=== PATIENT | male | born 1965 | race American Indian/Alaskan Native ===

== ENCOUNTER 2018-04-04 14:50 | Emergency (ER) | payer SELFPAY ==
[2018-04-04 16:02] VITALS: BP 167/102
== END 2018-04-04 20:00 | disposition left against medical advice (07) ==
LOC: ED 14:50
DX: M54.89 Other dorsalgia (principal); Z53.21 Procedure and treatment not carried out due to patient leaving prior to being seen by health care provider

== ENCOUNTER 2018-04-05 07:56 | Emergency (ER) | payer SELFPAY ==
[2018-04-05 09:11] VITALS: BP 157/99
--- NOTE | 2018-04-05 09:58 | Emergency Department Report ---
ED Back Pain/Injury HPI - General Chief Complaint: Back Pain/Injury Stated Complaint: LOWER BACK PAIN Time Seen by Provider: 04/05/18 09:49 Source: patient Limitations: No Limitations - History of Present Illness Initial Comments: Mr. Mahoney is a 53-year-old male presents with need for evaluation of chronic back pain and refill of medication. He was recently released from incarceration in January. He has been working at a fast food restaurant. He is unable to afford co-pay to follow-up in the clinic. Therefore he came to the ED. He has chronic lower back pain which has been exacerbated with his new job. He also needs refill of 3 blood pressure medications. Pain is mild lower back. Pain is improved with Alleve. He requests prescription for Suzy GUTHRIE Complaint: back pain -: Gradual, week(s) (2) Similar Symptoms Previously: Yes Severity: moderate Consistency: constant Improves With: other (Alleve) - Related Data Previous Rx's Medication Instructions Recorded Last Taken Type Atenolol 100 mg PO DAILY #30 tablet 05/22/14 Unknown Rx amLODIPine [Norvasc] 5 mg PO DAILY #30 tab 05/22/14 Unknown Rx hydroCHLOROthiazide [Hctz] 12.5 mg PO QDAY #30 capsule 05/22/14 Unknown Rx Atenolol [Tenormin] 25 mg PO DAILY 30 Days #30 tab 04/05/18 Unknown Rx Cyclobenzaprine [Flexeril] 10 mg PO TID PRN #30 tablet 04/05/18 Unknown Rx Losartan [Cozaar] 50 mg PO QDAY 30 Days #30 tablet 04/05/18 Unknown Rx amLODIPine [Norvasc] 10 mg PO DAILY 30 Days #30 tab 04/05/18 Unknown Rx Allergies Allergy/AdvReac Type Severity Reaction Status Date / Time SHAWN Inhibitors Allergy Unknown Verified 04/04/18 15:58 ED Review of Systems ROS: Stated complaint: LOWER BACK PAIN Other details as noted in HPI Constitutional: denies: fever Cardiovascular: denies: chest pain Gastrointestinal: denies: abdominal pain Genitourinary: denies: urgency Neurological: denies: headache, weakness, paresthesias, confusion ED Past Medical Hx - Past Medical History Hx Hypertension: Yes Hx Psychiatric Treatment: Yes (Drug use with crack cocaine) Additional medical history: bulging disc - Surgical History Past Surgical History?: No - Social History Smoking Status: Current Every Day Smoker Substance Use Type: None, Alcohol - Medications Home Medications: Home Medications Medication Instructions Recorded Confirmed Last Taken Type Atenolol 100 mg PO DAILY #30 tablet 05/22/14 07/13/14 Unknown Rx amLODIPine [Norvasc] 5 mg PO DAILY #30 tab 05/22/14 07/13/14 Unknown Rx hydroCHLOROthiazide [Hctz] 12.5 mg PO QDAY #30 capsule 05/22/14 07/13/14 Unknown Rx Atenolol [Tenormin] 25 mg PO DAILY 30 Days #30 tab 04/05/18 Unknown Rx Cyclobenzaprine [Flexeril] 10 mg PO TID PRN #30 tablet 04/05/18 Unknown Rx Losartan [Cozaar] 50 mg PO QDAY 30 Days #30 tablet 04/05/18 Unknown Rx amLODIPine [Norvasc] 10 mg PO DAILY 30 Days #30 tab 04/05/18 Unknown Rx ED Physical Exam - General Limitations: No Limitations General appearance: alert, in no apparent distress - Head Head exam: Present: atraumatic, normocephalic - Eye Eye exam: Present: normal appearance - ENT ENT exam: Present: mucous membranes moist - Neck Neck exam: Present: normal inspection - Respiratory Respiratory exam: Present: normal lung sounds bilaterally. Absent: respiratory distress, wheezes, rales, rhonchi - Cardiovascular Cardiovascular Exam: Present: regular rate, normal rhythm, normal heart sounds. Absent: bradycardia, tachycardia, systolic murmur, diastolic murmur, rubs, gallop - GI/Abdominal GI/Abdominal exam: Present: soft, normal bowel sounds. Absent: distended, tenderness, guarding - Rectal Rectal exam: Present: deferred - Extremities Exam Extremities exam: Present: normal inspection - Back Exam Back exam: Present: normal inspection, full ROM. Absent: tenderness, CVA tenderness (R), CVA tenderness (L), muscle spasm, paraspinal tenderness, vertebral tenderness - Neurological Exam Neurological exam: Present: alert, oriented X3, normal gait - Psychiatric Psychiatric exam: Present: normal affect, normal mood - Skin Skin exam: Present: warm, dry, intact, normal color. Absent: rash ED Course Vital Signs 04/05/18 09:08 Temperature 97.7 F Pulse Rate 64 Respiratory 20 Rate Blood Pressure 157/99 O2 Sat by Pulse 100 Oximetry ED Medical Decision Making - Medical Decision Making 1. Chronic back pain in lumbar region. Patient appears comfortable, neurologically intact. I recommended scheduled dosing of naproxen. rx: flexeril 2. medication refill, rx provided (Losartan, atenolol, amlodipine. Critical care attestation.: If time is entered above; I have spent that time in minutes in the direct care of this critically ill patient, excluding procedure time. ED Disposition Clinical Impression: Back pain, Medication refill, Hypertension Disposition: TO HOME OR SELFCARE Is pt being admited?: No Does the pt Need Aspirin: No Condition: Stable Instructions: Hypertension (ED), Chronic Back Pain (ED) Prescriptions: amLODIPine [Norvasc] 10 mg PO DAILY 30 Days #30 tab Atenolol [Tenormin] 25 mg PO DAILY 30 Days #30 tab Cyclobenzaprine [Flexeril] 10 mg PO TID PRN #30 tablet PRN Reason: Muscle Spasm Losartan [Cozaar] 50 mg PO QDAY 30 Days #30 tablet Referrals: [facility] [Outside] - 3-5 Days Forms: Work/School Release Form(ED)
== END 2018-04-05 10:21 | disposition home or self-care (01) ==
LOC: ED 07:56
DX: I10 Essential (primary) hypertension (principal); M54.5 Low back pain; F17.200 Nicotine dependence, unspecified, uncomplicated; G89.29 Other chronic pain; Z76.0 Encounter for issue of repeat prescription
CPT/HCPCS: 99282

== ENCOUNTER 2019-10-27 10:12 | Emergency (ER) | payer SELFPAY ==
--- NOTE | 2019-10-27 10:54 | Emergency Department Report ---
ED Chest Pain HPI - General Chief Complaint: Chest Pain Stated Complaint: CHEST PAIN Time Seen by Provider: 10/27/19 10:43 Source: patient, EMS Mode of arrival: Stretcher Limitations: No Limitations - History of Present Illness Initial Comments: 54-year-old male with history of hypertension presents to ED with complaint of chest pain. 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 States he had just arrived at work when the chest pain began, which was approximately 40 minutes ago. Patient states the pain was left-sided and sharp. States it initially lasted for approximately 45 seconds, resolved, then returned for approximately 5 seconds before resolving again. EMS was called, patient was given aspirin and nitroglycerin. Patient reports resolution of pain at this time. He reports associated shortness of breath and diaphoresis, denies nausea or vomiting, leg pain or swelling. Patient denies fever, cough, known exposure to COVID positive persons. Patient reports tobacco use and crack cocaine use 2 days ago. Patient states he takes atenolol 100 mg, Norvasc 10 mg. MD Complaint: chest pain -: minutes(s) (40) Onset: during rest Pain Location: left chest Pain Radiation: none Severity: moderate Severity scale (0 -10): 4 Quality: sharp Consistency: intermittent Improves With: nothing Worsens With: nothing re: diaphoresis, dyspnea. denies: nausea, vomting Other Symptoms: denies: cough, fever, leg swelling Treatments Prior to Arrival: aspirin, nitroglycerin - Related Data Previous Rx's Medication Instructions Recorded Last Taken Type amLODIPine 5 mg PO DAILY #30 tab 05/22/14 Unknown Rx atenoloL [Atenolol] 100 mg PO DAILY #30 tablet 05/22/14 Unknown Rx hydroCHLOROthiazide [Hctz] 12.5 mg PO QDAY #30 capsule 05/22/14 Unknown Rx Cyclobenzaprine [Flexeril] 10 mg PO TID PRN #30 tablet 04/05/18 Unknown Rx Losartan [Cozaar] 50 mg PO QDAY 30 Days #30 tablet 04/05/18 Unknown Rx atenoloL [Tenormin] 25 mg PO DAILY 30 Days #30 tab 04/05/18 Unknown Rx Atenolol [Tenormin] 100 mg PO DAILY #30 tab 10/27/19 Unknown Rx amLODIPine 10 mg PO DAILY 30 Days #30 tab 10/27/19 Unknown Rx Allergies Allergy/AdvReac Type Severity Reaction Status Date / Time SHAWN Inhibitors Allergy Unknown Verified 04/04/18 15:58 Heart Score - HEART Score History: Slightly suspicious EKG: Normal Age: 45-65 Risk factors: 1-2 risk factors Troponin: < normal limit HEART Score: 2 ED Review of Systems ROS: Stated complaint: CHEST PAIN Other details as noted in HPI Comment: All other systems reviewed and negative Constitutional: denies: fever Respiratory: shortness of breath. denies: cough Cardiovascular: chest pain Gastrointestinal: denies: nausea, vomiting Musculoskeletal: other (Denies leg pain or swelling) ED Past Medical Hx - Past Medical History Previous Medical History?: Yes Hx Hypertension: Yes Hx Psychiatric Treatment: Yes (Drug use with crack cocaine) Additional medical history: bulging disc - Surgical History Past Surgical History?: No - Social History Smoking Status: Current Every Day Smoker Substance Use Type: Methamphetamines - Medications Home Medications: Home Medications Medication Instructions Recorded Confirmed Last Taken Type amLODIPine 5 mg PO DAILY #30 tab 05/22/14 07/13/14 Unknown Rx atenoloL [Atenolol] 100 mg PO DAILY #30 tablet 05/22/14 07/13/14 Unknown Rx hydroCHLOROthiazide [Hctz] 12.5 mg PO QDAY #30 capsule 05/22/14 07/13/14 Unknown Rx Cyclobenzaprine [Flexeril] 10 mg PO TID PRN #30 tablet 04/05/18 Unknown Rx Losartan [Cozaar] 50 mg PO QDAY 30 Days #30 tablet 04/05/18 Unknown Rx atenoloL [Tenormin] 25 mg PO DAILY 30 Days #30 tab 04/05/18 Unknown Rx Atenolol [Tenormin] 100 mg PO DAILY #30 tab 10/27/19 Unknown Rx amLODIPine 10 mg PO DAILY 30 Days #30 tab 10/27/19 Unknown Rx ED Physical Exam - General Limitations: No Limitations General appearance: alert, in no apparent distress - Head Head exam: Present: atraumatic, normocephalic - Eye Eye exam: Present: normal appearance, EOMI - ENT ENT exam: Present: mucous membranes moist - Neck Neck exam: Present: normal inspection - Respiratory Respiratory exam: Present: normal lung sounds bilaterally. Absent: respiratory distress - Cardiovascular Cardiovascular Exam: Present: regular rate, normal rhythm - GI/Abdominal GI/Abdominal exam: Present: soft. Absent: distended, tenderness - Extremities Exam Extremities exam: Present: normal inspection. Absent: pedal edema, calf tenderness - Neurological Exam Neurological exam: Present: alert, oriented X3 - Psychiatric Psychiatric exam: Present: normal affect, normal mood - Skin Skin exam: Present: warm, dry, intact, normal color ED Course Vital Signs 10/27/19 10/27/19 10/27/19 10:23 10:30 10:45 Temperature 98.8 F Pulse Rate 66 70 65 Respiratory 25 H 12 11 L Rate Blood Pressure 168/106 154/93 Blood Pressure 169/102 [Right] O2 Sat by Pulse 96 98 98 Oximetry 10/27/19 10/27/19 10/27/19 11:00 11:15 11:30 Temperature Pulse Rate 62 64 62 Respiratory 13 17 13 Rate Blood Pressure 146/90 151/93 150/102 Blood Pressure [Right] O2 Sat by Pulse 98 96 98 Oximetry 10/27/19 10/27/19 10/27/19 11:45 12:01 12:15 Temperature Pulse Rate 63 67 66 Respiratory 16 16 18 Rate Blood Pressure 153/93 139/99 139/99 Blood Pressure [Right] O2 Sat by Pulse 98 96 96 Oximetry 10/27/19 10/27/19 10/27/19 12:30 12:45 13:00 Temperature Pulse Rate 60 64 63 Respiratory 15 10 L 18 Rate Blood Pressure 143/86 143/86 144/94 Blood Pressure [Right] O2 Sat by Pulse 96 97 97 Oximetry 10/27/19 10/27/19 10/27/19 13:15 13:30 13:45 Temperature Pulse Rate 64 61 58 L Respiratory 22 12 13 Rate Blood Pressure 153/99 144/90 156/95 Blood Pressure [Right] O2 Sat by Pulse 97 98 97 Oximetry 10/27/19 10/27/19 10/27/19 14:00 14:15 14:30 Temperature Pulse Rate 69 67 64 Respiratory 15 26 H 14 Rate Blood Pressure 152/93 152/93 155/87 Blood Pressure [Right] O2 Sat by Pulse 96 95 98 Oximetry 10/27/19 10/27/19 10/27/19 14:45 15:00 15:15 Temperature Pulse Rate 57 L 69 74 Respiratory 15 18 21 Rate Blood Pressure 151/87 151/87 154/97 Blood Pressure [Right] O2 Sat by Pulse 96 95 96 Oximetry - Reevaluation(s) Reevaluation #1: 10/27/19 13:19 Pt stable. Comfortable, remains chest pain free. Will repeat troponin. If normal, pt will d/c home w/ outpt f/u. ED Medical Decision Making - Lab Data Result diagrams: 10/27/19 11:03 10/27/19 11:03 - EKG Data -: EKG Interpreted by Me EKG shows normal: sinus rhythm, axis, intervals, QRS complexes, ST-T waves Rate: normal - EKG Data Interpretation: no acute changes - Radiology Data Radiology results: report reviewed, image reviewed - Medical Decision Making 54-year-old male with brief, atypical sounding chest pain. EKG unremarkable, troponin negative x2. D-dimer normal. Patient currently chest pain-free. Vital signs stable. Patient does report crack cocaine abuse in the last couple of days. Spoke with patient regarding discontinuation of drug use. Patient also given a refill on his blood pressure medications. Outpatient follow-up advised. Return precautions given. - Differential Diagnosis ACS, PE, anxiety, pneumonia Critical care attestation.: If time is entered above; I have spent that time in minutes in the direct care of this critically ill patient, excluding procedure time. ED Disposition Clinical Impression: Chest pain Disposition: DC-01 TO HOME OR SELFCARE Is pt being admited?: No Condition: Stable Instructions: Chest Pain (ED) Prescriptions: amLODIPine 10 mg PO DAILY 30 Days #30 tab Atenolol [Tenormin] 100 mg PO DAILY #30 tab Referrals: ADDIE LEMUS MD [Primary Care Provider] - 3-5 Days [facility] [Provider Group] - 3-5 Days MOISES NAJERA MD [Staff Physician] - 3-5 Days Time of Disposition: 15:04
[2019-10-27 11:22] LABS: Basophils % (Auto) 0.3 % (0.0-1.8); Eosinophils % (Auto) 0.6 % (0.0-4.3); Hematocrit 42.7 % (35.5-45.6); Hemoglobin 14.7 gm/dl (11.8-15.2); Lymphocytes # (Auto) 1.3 K/mm3 (1.2-5.4); Lymphocytes % (Auto) 21.1 % (13.4-35.0); Mean Corpuscular HGB Conc 35 % (32-34); Mean Corpuscular Volume 94 fl (84-94); Monocytes # (Auto) 0.5 K/mm3 (0.0-0.8); Platelet Count 187 K/mm3 (140-440); Red Blood Count 4.57 M/mm3 (3.65-5.03); Red Cell Distribution Width 14.7 % (13.2-15.2)
--- NOTE | 2019-10-27 11:26 | XRay Report ---
CHEST 1 VIEW 10/27/2019 10:19 AM INDICATION / CLINICAL INFORMATION: Chest pain. COMPARISON: None available. FINDINGS: SUPPORT DEVICES: None. HEART / MEDIASTINUM: No significant abnormality. LUNGS / PLEURA: No significant pulmonary or pleural abnormality. No pneumothorax. ADDITIONAL FINDINGS: No significant additional findings. IMPRESSION: 1. No acute findings. Signer Name: Cristi Jimenez MD Signed: 10/27/2019 11:21 AM Workstation Name: [id number]
[2019-10-27 11:32] LABS: INR 1.04 (0.87-1.13)
[2019-10-27 11:33] LABS: Partial Thromboplastin Time 25.8 Sec. (24.2-36.6)
[2019-10-27 11:44] LABS: BUN/Creatinine Ratio 11; Blood Urea Nitrogen 10 mg/dL (9-20); Calcium 8.9 mg/dL (8.4-10.2); Hemolysis Index 4
[2019-10-27 15:26] VITALS: BP 154/97
== END 2019-10-27 15:28 | disposition home or self-care (01) ==
LOC: ED 10:12
DX: R07.9 Chest pain, unspecified (principal); I10 Essential (primary) hypertension; F17.200 Nicotine dependence, unspecified, uncomplicated; F15.90 Other stimulant use, unspecified, uncomplicated; F14.90 Cocaine use, unspecified, uncomplicated; Z79.899 Other long term (current) drug therapy; Z88.8 Allergy status to other drugs, medicaments and biological substances
CPT/HCPCS: 36415; 71045; 80048; 84484; 85025; 85379; 85610; 85730; 93005

== ENCOUNTER 2019-12-15 12:54 | Inpatient (IN) | payer OTHER ==
[2019-12-15 14:48] LABS: Basophils # (Auto) 0.2 K/mm3 (0.0-0.1); Basophils % (Auto) 2.7 % (0.0-1.8); Eosinophils % (Auto) 0.8 % (0.0-4.3); Hematocrit 46.1 % (35.5-45.6); Hemoglobin 15.8 gm/dl (11.8-15.2); Lymphocytes % (Auto) 15.5 % (13.4-35.0); Mean Corpuscular HGB Conc 34 % (32-34); Mean Corpuscular Volume 95 fl (84-94); Monocytes # (Auto) 0.6 K/mm3 (0.0-0.8); Monocytes % (Auto) 9.2 % (0.0-7.3); Platelet Count 205 K/mm3 (140-440); Red Blood Count 4.85 M/mm3 (3.65-5.03); Red Cell Distribution Width 14.5 % (13.2-15.2)
[2019-12-15 14:58] LABS: Alanine Aminotransferase 20 units/L (7-56); Albumin 4.3 g/dL (3.9-5); BUN/Creatinine Ratio 10; Bilirubin,Direct < 0.2 mg/dL (0-0.2); Blood Urea Nitrogen 8 mg/dL (9-20); Calcium 9.3 mg/dL (8.4-10.2); Hemolysis Index 10
[2019-12-15 16:45] LABS: Bilirubin,Urine NEG (Negative); Blood,Urine SM (Negative); Color,Urine Yellow (Yellow); Protein,Urine <15 mg/dL mg/dL (Negative); WBC,Urine < 1.0 /HPF (0.0-6.0)
[2019-12-16 06:04] LABS: Basophils % (Auto) 0.4 % (0.0-1.8); Eosinophils # (Auto) 0.1 K/mm3 (0.0-0.4); Eosinophils % (Auto) 1.9 % (0.0-4.3); Hematocrit 42.6 % (35.5-45.6); Hemoglobin 14.5 gm/dl (11.8-15.2); Lymphocytes # (Auto) 1.9 K/mm3 (1.2-5.4); Lymphocytes % (Auto) 34.1 % (13.4-35.0); Mean Corpuscular HGB Conc 34 % (32-34); Mean Corpuscular Volume 96 fl (84-94); Monocytes # (Auto) 0.5 K/mm3 (0.0-0.8); Monocytes % (Auto) 8.7 % (0.0-7.3); Platelet Count 189 K/mm3 (140-440); Red Blood Count 4.45 M/mm3 (3.65-5.03)
[2019-12-16 06:14] LABS: Alanine Aminotransferase 16 units/L (7-56); Albumin 3.6 g/dL (3.9-5); BUN/Creatinine Ratio 8; Blood Urea Nitrogen 8 mg/dL (9-20); Calcium 8.9 mg/dL (8.4-10.2); Hemolysis Index 7
[2019-12-17 07:09] LABS: BUN/Creatinine Ratio 6; Blood Urea Nitrogen 6 mg/dL (9-20); Calcium 8.7 mg/dL (8.4-10.2); Hemolysis Index 2
[2019-12-18 05:52] LABS: Hematocrit 42.3 % (35.5-45.6); Hemoglobin 14.3 gm/dl (11.8-15.2); Mean Corpuscular HGB Conc 34 % (32-34); Mean Corpuscular Volume 96 fl (84-94); Platelet Count 185 K/mm3 (140-440); Red Blood Count 4.41 M/mm3 (3.65-5.03); Red Cell Distribution Width 14.1 % (13.2-15.2)
[2019-12-18 06:07] LABS: BUN/Creatinine Ratio 5; Blood Urea Nitrogen 5 mg/dL (9-20); Calcium 8.7 mg/dL (8.4-10.2); Hemolysis Index 8
[2019-12-19 13:24] VITALS: BP 122/78
== END 2019-12-19 13:30 | disposition home or self-care (01) | DRG 375 ==
LOC: ED 12:54 → 3A 20:05
PROVIDERS: ADMIT Internal Medicine; ATTEND Hospitalist
PROC: 0DBL8ZZ Excision of Transverse Colon, Via Natural or Artificial Opening Endoscopic (ICD-10-PCS; principal; 2019-12-18)
PROC: 0DBN8ZX Excision of Sigmoid Colon, Via Natural or Artificial Opening Endoscopic, Diagnostic (ICD-10-PCS; 2019-12-18)
DX: C18.9 Malignant neoplasm of colon, unspecified (principal); C79.9 Secondary malignant neoplasm of unspecified site; E87.6 Hypokalemia; I10 Essential (primary) hypertension; I16.0 Hypertensive urgency; F17.210 Nicotine dependence, cigarettes, uncomplicated; Z82.49 Family history of ischemic heart disease and other diseases of the circulatory system; Z80.42 Family history of malignant neoplasm of prostate; Z88.8 Allergy status to other drugs, medicaments and biological substances
CPT/HCPCS: 36415; 71045; 74176; 74177; 80048; 80053; 80076; 81001; 82378; 82962; 83036; 83735; 83880; 84100; 84132; 85025; 85027; 85610; 85730; 88305; G0378; J2270; J2405; J2704; J3480; J7030; J7040; Q9967

== ENCOUNTER 2020-07-28 15:52 | Emergency (ER) | payer OTHER ==
--- NOTE | 2020-07-28 16:08 | Event Note ---
ED Screening Note ED Screening Note: hx of colon cancer LLQ abd pain that worsened that few days ago states he has pain with having a BM states he last had a BM two days ago has not had any surgery, chemo, XRT has not seen GI or surgery due to lack of insurance he was evaluated in December 2019 at this facility and had a biopsy which showed lion nocarcinoma This initial assessment/diagnostic orders/clinical plan/treatment(s) is/are subject to change based on patients health status, clinical progression and re- assessment by fellow clinical providers in the ED. Further treatment and workup at subsequent clinical providers discretion. Patient/guardian urged not to elope from the ED as their condition may be serious if not clinically assessed and managed. Initial orders include: labs
[2020-07-28 17:02] LABS: Alanine Aminotransferase 12 units/L (7-56); Albumin 3.7 g/dL (3.9-5); BUN/Creatinine Ratio 9; Blood Urea Nitrogen 8 mg/dL (9-20); Calcium 8.2 mg/dL (8.4-10.2); Hemolysis Index 6
[2020-07-28 17:19] LABS: Basophils % (Auto) 0.2 % (0.0-1.8); Eosinophils # (Auto) 0.1 K/mm3 (0.0-0.4); Eosinophils % (Auto) 1.6 % (0.0-4.3); Hematocrit 45.2 % (35.5-45.6); Hemoglobin 15.3 gm/dl (11.8-15.2); Lymphocytes # (Auto) 2.1 K/mm3 (1.2-5.4); Lymphocytes % (Auto) 37.9 % (13.4-35.0); Mean Corpuscular HGB Conc 34 % (32-34); Mean Corpuscular Volume 97 fl (84-94); Monocytes # (Auto) 0.5 K/mm3 (0.0-0.8); Monocytes % (Auto) 9.1 % (0.0-7.3); Platelet Count 222 K/mm3 (140-440); Red Blood Count 4.68 M/mm3 (3.65-5.03); Red Cell Distribution Width 13.2 % (13.2-15.2)
[2020-07-28] MEDS ORDERED: ONDANSETRON 4 MG/2 ML INJ IV ONE (18:27)
[2020-07-28] MEDS ORDERED: MORPHINE 4 MG/1 ML INJ IV ONE (18:27)
[2020-07-28] MEDS ORDERED: SODIUM CHLORIDE 0.9% 1000 ML 1,000 ML IV ONE (18:27)
--- NOTE | 2020-07-28 18:29 | Emergency Department Report ---
ED General Adult HPI - General Chief complaint: Pain General Stated complaint: COLON CANCER/PAIN PUI?: No Time Seen by Provider: 07/28/20 16:06 Source: patient, RN notes reviewed, old records reviewed Mode of arrival: Ambulatory Limitations: No Limitations - History of Present Illness Initial comments: The patient was evaluated in the emergency department for symptoms described in the history of present illness. He/she was evaluated in the context of the global COVID-19 pandemic, which necessitated consideration that the patient might be at risk for infection with the virus that causes COVID-19. Institutional protocols and algorithms that pertain to the evaluation of patients at risk for COVID-19 are in a state of rapid change based on information released by regulatory bodies including the CDC and federal and state organizations. These policies and algorithms were followed during the patient's care in the emergency department. Please note that these policies, procedures and recommendations changed on a rapid basis. This is a pleasant 55-year-old gentleman. He was presumptively diagnosed with colon cancer at this hospital in 2019. He was supposed to follow-up with outpatient oncology, Dr. Frieda Nathan. Unfortunately, the patient is not insured. He states that he has pursued multiple avenues to obtain insurance, including investigating [facility], Medicaid, and [facility]. He is still currently trying to obtain insurance. Today, he presents to the ER with a complaint of left lower quadrant abdominal pain, present for 1 week. The aforementioned oncologist is not able to accommodate the patient with an outpatient visit, as the patient does not have insurance, and therefore, not able to pay for any of his visits. He has therefore not received any chemotherapy, radiation therapy, or surgical interven tion. The left lower quadrant pain is sharp, does not radiate anywhere, increases with palpation, and decreases with rest. No vomiting. Positive decrease in stool caliber. No urinary symptoms. No testicular pain. No hematemesis or bright red blood per rectum. Patient denies additional complaints. -: Gradual, days(s) Location: abdomen Radiation: non-radiation Quality: aching Consistency: constant Improves with: rest Worsens with: movement - Related Data Previous Rx's Medication Instructions Recorded Last Taken Type TEGretol 100 mg PO QDAY #30 12/19/19 Unknown Rx oxyCODONE /ACETAMINOPHEN [Percocet 1 tab PO Q6H PRN #10 tablet 12/19/19 Unknown Rx 5/325 mg] traZODone [Desyrel] 100 mg PO QHS #30 12/19/19 Unknown Rx Docusate Sodium [Docusil] 100 mg PO BID PRN #30 capsule 07/28/20 Unknown Rx Famotidine [Pepcid] 20 mg PO BID #60 tablet 07/28/20 Unknown Rx HYDROcodone/APAP 5-325 [Ivel 1 each PO Q6HR PRN #10 tablet 07/28/20 Unknown Rx 5-325 mg TAB] amLODIPine 10 mg PO DAILY 30 Days #30 tab 07/28/20 Unknown Rx atenoloL [Tenormin] 25 mg PO DAILY 30 Days #30 tab 07/28/20 Unknown Rx Allergies Allergy/AdvReac Type Severity Reaction Status Date / Time SHAWN Inhibitors Allergy Unknown Verified 04/04/18 15:58 ED Review of Systems ROS: Stated complaint: COLON CANCER/PAIN Other details as noted in HPI Comment: All other systems reviewed and negative Gastrointestinal: abdominal pain, constipation. denies: hematemesis, melena, hematochezia Genitourinary: denies: testicular pain ED Past Medical Hx - Past Medical History Previous Medical History?: Yes Hx Hypertension: Yes Hx Heart Attack/AMI: No Hx Liver Disease: No Hx Renal Disease: No Hx Psychiatric Treatment: Yes (Drug use with crack cocaine) Additional medical history: bulging disc. Colon Cancer diagnosed 12/2019 - Surgical History Past Surgical History?: Yes Additional Surgical History: TURP 2017 - Social History Smoking Status: Current Every Day Smoker Substance Use Type: Alcohol, Cocaine - Medications Home Medications: Home Medications Medication Instructions Recorded Confirmed Last Taken Type TEGretol 100 mg PO QDAY #30 12/19/19 Unknown Rx oxyCODONE /ACETAMINOPHEN [Percocet 1 tab PO Q6H PRN #10 tablet 12/19/19 Unknown Rx 5/325 mg] traZODone [Desyrel] 100 mg PO QHS #30 12/19/19 Unknown Rx Docusate Sodium [Docusil] 100 mg PO BID PRN #30 capsule 07/28/20 Unknown Rx Famotidine [Pepcid] 20 mg PO BID #60 tablet 07/28/20 Unknown Rx HYDROcodone/APAP 5-325 [Ivel 1 each PO Q6HR PRN #10 tablet 07/28/20 Unknown Rx 5-325 mg TAB] amLODIPine 10 mg PO DAILY 30 Days #30 tab 07/28/20 Unknown Rx atenoloL [Tenormin] 25 mg PO DAILY 30 Days #30 tab 07/28/20 Unknown Rx ED Physical Exam - General Limitations: No Limitations General appearance: alert, in no apparent distress - Head Head exam: Present: atraumatic, normocephalic - Eye Eye exam: Present: normal appearance, EOMI. Absent: nystagmus - ENT ENT exam: Present: normal exam, normal orophraynx, mucous membranes moist, normal external ear exam - Neck Neck exam: Present: normal inspection, full ROM. Absent: tenderness, meningismus - Respiratory Respiratory exam: Present: normal lung sounds bilaterally. Absent: respiratory distress, wheezes, rales, rhonchi, stridor, decreased breath sounds - Cardiovascular Cardiovascular Exam: Present: regular rate, normal rhythm, normal heart sounds. Absent: bradycardia, tachycardia, irregular rhythm, systolic murmur, diastolic murmur, rubs, gallop - GI/Abdominal GI/Abdominal exam: Present: soft, tenderness, guarding (Voluntary guarding the left lower quadrant). Absent: distended, rebound, rigid, pulsatile mass - Rectal Rectal exam: Present: deferred - Extremities Exam Extremities exam: Present: normal inspection, full ROM, other (2+ pulses noted in the bilateral upper and lower extremities. There is no palpable cord. negative Homans sign. Muscular compartments are soft. The pelvis is stable.). Absent: tenderness, pedal edema, joint swelling, calf tenderness - Back Exam Back exam: Present: normal inspection, full ROM. Absent: tenderness, CVA tenderness (R), CVA tenderness (L), paraspinal tenderness, vertebral tenderness - Neurological Exam Neurological exam: Present: alert, normal gait, other (No facial droop. Tongue midline. Extraocular movements intact bilaterally. Facial sensation intact to light touch in V1, V2, V3 distribution bilaterally. 5 and a 5 strength in 4 extremities. Sensation intact to light touch in 4 extremities.). Absent: motor sensory deficit - Psychiatric Psychiatric exam: Present: normal affect, normal mood - Skin Skin exam: Present: warm, dry, intact, normal color. Absent: rash ED Course Vital Signs 07/28/20 07/28/20 07/28/20 16:01 18:33 20:09 Temperature 97.9 F Pulse Rate 80 96 H 63 Respiratory 20 20 14 Rate Blood Pressure 179/108 Blood Pressure 177/107 169/110 [Left] O2 Sat by Pulse 99 99 97 Oximetry - Reevaluation(s) Reevaluation #1: 07/28/20 19:12 Differential diagnosis, including the not limited to: Colitis, diverticulitis, obstruction, perforation, colon cancer, worsening cancer burden Assessment and plan: 55-year-old gentleman, with presumed sigmoid/distal colon cancer, not currently receiving any therapy, does not have an outpatient oncologist or primary care doctor, unfortunately secondary to lack of insurance. Patient reports he has made multiple efforts to obtain private insurance, and is still attempting to do so. We will treat his pain aggressively. Laboratory studies are reviewed and appreciated. We have recommended a CT scan of the abdomen pelvis to exclude surgical complications. Have discussed this plan of care with the patient, who verbalized understanding, and who is amenable to this plan of care. I will place a case management consultation, so that our case management team/social work team can hopefully assist the patient with obtaining outpatient insurance, so he may continue his care. Reevaluation #2: 07/28/20 20:23 02/19/2020 1 02/18/2020 HYDROCODONE-ACETAMIN 5-325 MG 10.0 2 RI SOB [id number] PUBLI (0612) 0 25.0 MME Comm Ins [place] 12/19/2019 1 12/19/2019 OXYCODONE-ACETAMINOPHEN 5-325 10.0 2 RE SHANTEL [id number] PUBLI (0612) 0 37.5 [place] Comm [place] Patient reassessed. abdomen softer on repeat examination. The patient endorses improvement in symptoms. He is currently playing on his cellular phone, and watching women's gymnastics on TV. Patient will be given a short course of pain medication, we will refill his antihypertensive therapy, he will be given an affordable prescription card, reiterated need to follow-up with outpatient primary care/oncology. CT scan abdomen pelvis demonstrates no acute surgical process or any process that would require Hospitalization or admission at this time Patient verbalizes understanding. Return precautions are reviewed. Patient and I also discussed how to use an affordable prescription card, or affordable prescription/good Rx application on his smart phone, to find affordable prescriptions 07/28/20 20:29 ED Medical Decision Making - Lab Data Result diagrams: 07/28/20 16:24 07/28/20 16:24 Vital Signs 07/28/20 07/28/20 16:01 18:33 Temperature 97.9 F Pulse Rate 80 96 H Respiratory 20 20 Rate Blood Pressure 179/108 Blood Pressure 177/107 [Left] O2 Sat by Pulse 99 99 Oximetry Lab Results 07/28/20 07/28/20 Range/Units 16:24 16:24 WBC 5.5 (4.5-11.0) K/mm3 RBC 4.68 (3.65-5.03) M/mm3 Hgb 15.3 H (11.8-15.2) gm/dl Hct 45.2 (35.5-45.6) % MCV 97 H (84-94) fl MCH 33 H (28-32) pg MCHC 34 (32-34) % RDW 13.2 (13.2-15.2) % Plt Count 222 (140-440) K/mm3 Lymph % (Auto) 37.9 H (13.4-35.0) % Band[place] % (Auto) 9.1 H (0.0-7.3) % Eos % (Auto) 1.6 (0.0-4.3) % Baso % (Auto) 0.2 (0.0-1.8) % Lymph # (Auto) 2.1 (1.2-5.4) K/mm3 Band[place] # (Auto) 0.5 (0.0-0.8) K/mm3 Eos # (Auto) 0.1 (0.0-0.4) K/mm3 Baso # (Auto) 0.0 (0.0-0.1) K/mm3 Seg Neutrophils % 51.2 (40.0-70.0) % Seg Neutrophils # 2.8 (1.8-7.7) K/mm3 Sodium 138 (137-145) mmol/L Potassium 3.8 (3.6-5.0) mmol/L Chloride 103.2 (98-107) mmol/L Carbon Dioxide 27 (22-30) mmol/L Anion Gap 12 mmol/L BUN 8 L (9-20) mg/dL Creatinine 0.9 (0.8-1.3) mg/dL Estimated GFR > 60 ml/min BUN/Creatinine Ratio 9 % Glucose 89 (75-100) mg/dL Calcium 8.2 L (8.4-10.2) mg/dL Total Bilirubin 0.60 (0.1-1.2) mg/dL AST 21 (5-40) units/L ALT 12 (7-56) units/L Alkaline Phosphatase 64 (35-129) units/L Total Protein 5.7 L (6.3-8.2) g/dL Albumin 3.7 L (3.9-5) g/dL Albumin/Globulin Ratio 1.9 % Lipase 17 (13-60) units/L - Radiology Data Radiology results: pending, report reviewed, image reviewed CT ABDOMEN AND PELVIS WITH CONTRAST INDICATION / CLINICAL INFORMATION: Acute on chronic left lower quadrant pain decrease. TECHNIQUE: Axial CT images were obtained through the abdomen and pelvis after IV contrast. All CT scans at this location are performed using CT dose reduction for ALARA by means of automated exposure control. COMPARISON: 12/16/2019 FINDINGS: LOWER CHEST: Mild bilateral lung base atelectasis noted. LIVER: Simple cyst left hepatic lobe stable since prior exam. GALLBLADDER: Calcified cholelithiasis is stable. No evidence of acute cholecystitis. BILE DUCTS: No significant abnormality. PANCREAS: No significant abnormality. SPLEEN: No significant abnormality. ADRENALS: No significant abnormality. RIGHT KIDNEY / URETER: No significant abnormality. LEFT KIDNEY / URETER: No significant abnormality. STOMACH / SMALL BOWEL: Mild focal fluid-filled distention of small bowel loops in the pelvis, the largest diameter measuring 2.6 cm. No definitive mechanical obstruction or transition point. COLON: The previously noted mass of the sigmoid colon (series 2 image 105) with concentric mural thickening similar to prior exam (measures 4.1 x 2.4 cm). There is been minimal decrease in pericolonic fat stranding. APPENDIX: No significant abnormality. PERITONEUM: No free fluid. No free air. No fluid collection. LYMPH NODES: Interval development of an enlarged left periaortic lymph node in the retroperitoneum measures 1.4 cm short axis (series 2 image 85). AORTA / ARTERIES: No significant abnormality. IVC / VEINS: No significant abnormality. URINARY BLADDER: No significant abnormality. REPRODUCTIVE ORGANS: No significant abnormality. ADDITIONAL FINDINGS: None. SKELETAL SYSTEM: Multilevel degenerative changes of the spine are similar. No aggressive osseous lesions. IMPRESSION: 1. Previously noted mass lesion of the sigmoid colon appears relatively stable to prior exam with interval decrease of pericolonic fat stranding. 2. Interval development of lymphadenopathy in the retroperitoneum in the left periaortic space measuring 1.4 cm short axis. 3. Mild focal fluid- filled distention of small bowel loops in the pelvis do not measure above upper limits of normal. There is no evidence of transition point or definitive mechanical bowel obstruction. Signer Name: Edgar Pastor MD Signed: 07/28/2020 6:35 PM Critical care attestation.: If time is entered above; I have spent that time in minutes in the direct care of this critically ill patient, excluding procedure time. ED Disposition Clinical Impression: Acute abdominal pain, Abnormal CT scan, sigmoid colon, Elevated blood pressure reading, Medication refill, Case management patient Disposition: DC-01 TO HOME OR SELFCARE Is pt being admited?: No Does the pt Need Aspirin: No Condition: Stable Additional Instructions: Do not take metformin medication for the next 48 hours if patient takes this medication. Take the pain medication, nausea medication, stool softener medication as needed and directed. Recommend follow-up as soon as possible with an outpatient primary care doctor or oncologist. CT scan demonstrated persistent distal large intestine abnormality, likely colon cancer. In addition, there is evidence of lymph node involvement, and therefore, metastatic colon cancer cannot be excluded. It is very important to follow-up closely with an outpatient oncologist to initiate therapy for presumed colon cancer with possible metastatic spread. Not following up as soon as possible may result in worsening cancer, which can cause , disability, paralysis, loss of quality of life. A Case management consultation has been placed in this computer system to assist the patient with obtaining outpatient insurance. However, we also recommend that the patient attempt to pursue acquisition of insurance on his own, to ensure timely outpatient follow-up. Please return to the emergency room right away with new pain, worsening pain, migration of pain, projectile vomiting, change in mental status, confusion, inability to tolerate liquid feeds. Please drink at least 6 cups of water per day, and eat plenty of fiber, vegetables, lean protein, and avoid consumption of carbohydrates, sugary foods, and processed foods. Referrals: ANALY NATHAN DO [Primary Care Provider] - 3-5 Days [facility] [Provider Group] - 3-5 Days
--- NOTE | 2020-07-28 19:39 | Cat Scan Report ---
CT ABDOMEN AND PELVIS WITH CONTRAST INDICATION / CLINICAL INFORMATION: Acute on chronic left lower quadrant pain decrease. TECHNIQUE: Axial CT images were obtained through the abdomen and pelvis after IV contrast. All CT scans at this location are performed using CT dose reduction for ALARA by means of automated exposure control. COMPARISON: 12/16/2019 FINDINGS: LOWER CHEST: Mild bilateral lung base atelectasis noted. LIVER: Simple cyst left hepatic lobe stable since prior exam. GALLBLADDER: Calcified cholelithiasis is stable. No evidence of acute cholecystitis. BILE DUCTS: No significant abnormality. PANCREAS: No significant abnormality. SPLEEN: No significant abnormality. ADRENALS: No significant abnormality. RIGHT KIDNEY / URETER: No significant abnormality. LEFT KIDNEY / URETER: No significant abnormality. STOMACH / SMALL BOWEL: Mild focal fluid-filled distention of small bowel loops in the pelvis, the lar gest diameter measuring 2.6 cm. No definitive mechanical obstruction or transition point. COLON: The previously noted mass of the sigmoid colon (series 2 image 105) with concentric mural thic kening similar to prior exam (measures 4.1 x 2.4 cm). There is been minimal decrease in pericolonic f at stranding. APPENDIX: No significant abnormality. PERITONEUM: No free fluid. No free air. No fluid collection. LYMPH NODES: Interval development of an enlarged left periaortic lymph node in the retroperitoneum me asures 1.4 cm short axis (series 2 image 85). AORTA / ARTERIES: No significant abnormality. IVC / VEINS: No significant abnormality. URINARY BLADDER: No significant abnormality. REPRODUCTIVE ORGANS: No significant abnormality. ADDITIONAL FINDINGS: None. SKELETAL SYSTEM: Multilevel degenerative changes of the spine are similar. No aggressive osseous lesi ons. IMPRESSION: 1. Previously noted mass lesion of the sigmoid colon appears relatively stable to prior exam with int erval decrease of pericolonic fat stranding. 2. Interval development of lymphadenopathy in the retroperitoneum in the left periaortic space measur ing 1.4 cm short axis. 3. Mild focal fluid-filled distention of small bowel loops in the pelvis do not measure above upper l imits of normal. There is no evidence of transition point or definitive mechanical bowel obstruction. Signer Name: Edgar Pastor MD Signed: 07/28/2020 7:35 PM Workstation Name: [id number]
[2020-07-28 20:11] VITALS: BP 169/110
== END 2020-07-28 20:52 | disposition home or self-care (01) ==
LOC: ED 15:52
DX: R10.32 Left lower quadrant pain (principal); R03.0 Elevated blood-pressure reading, without diagnosis of hypertension; R93.3 Abnormal findings on diagnostic imaging of other parts of digestive tract; I10 Essential (primary) hypertension; F17.200 Nicotine dependence, unspecified, uncomplicated; F14.90 Cocaine use, unspecified, uncomplicated; Z98.890 Other specified postprocedural states; Z88.8 Allergy status to other drugs, medicaments and biological substances; Z79.899 Other long term (current) drug therapy; Z76.0 Encounter for issue of repeat prescription
CPT/HCPCS: 36415; 74177; 80053; 83690; 85025; 96361; 96374; 96375; 99284; J2270; J2405; J7030; Q9967

== ENCOUNTER 2020-09-23 14:58 | Outpatient (CLI) | payer OTHER ==
[2020-09-23 15:26] LABS: Basophils % (Auto) 0.4 % (0.0-1.8); Eosinophils # (Auto) 0.1 K/mm3 (0.0-0.4); Eosinophils % (Auto) 1.4 % (0.0-4.3); Hematocrit 40.9 % (35.5-45.6); Hemoglobin 14.2 gm/dl (11.8-15.2); Lymphocytes # (Auto) 1.9 K/mm3 (1.2-5.4); Lymphocytes % (Auto) 33.7 % (13.4-35.0); Mean Corpuscular HGB Conc 35 % (32-34); Mean Corpuscular Volume 96 fl (84-94); Monocytes # (Auto) 0.4 K/mm3 (0.0-0.8); Monocytes % (Auto) 7.3 % (0.0-7.3); Platelet Count 196 K/mm3 (140-440); Red Blood Count 4.28 M/mm3 (3.65-5.03); Red Cell Distribution Width 13.6 % (13.2-15.2)
[2020-09-23 15:44] LABS: Alanine Aminotransferase 17 units/L (7-56); Albumin 3.5 g/dL (3.9-5); BUN/Creatinine Ratio 18; Blood Urea Nitrogen 16 mg/dL (9-20); Calcium 8.1 mg/dL (8.4-10.2); Hemolysis Index 5
[2020-09-23 15:58] LABS: Amphetamine Screen,Urine Negative; Benzodiazepines Screen,Urine Negative; Cannabinoid Screen,Urine Negative; Methadone Screen,Urine Negative; Opiate Screen,Urine Negative
[2020-09-23 16:13] LABS: Cocaine Screen,Urine Positive
== END 2020-09-23 14:59 | disposition home or self-care (01) ==
LOC: LAB 14:58
PROVIDERS: ATTEND Surgery
DX: F19.10 Other psychoactive substance abuse, uncomplicated (principal)
CPT/HCPCS: 36415; 80053; 80307; 82378; 85025

== ENCOUNTER 2020-10-04 11:01 | Outpatient (CLI) | payer OTHER ==
[2020-10-04 11:44] LABS: Blood Urea Nitrogen 13 mg/dL (9-20)
--- NOTE | 2020-10-04 14:19 | Cat Scan Report ---
CT CHEST, ABDOMEN, AND PELVIS WITH IV CONTRAST INDICATION / CLINICAL INFORMATION: DISORDER OF LYMPHATIC VESSELS. TECHNIQUE: Axial CT images were obtained through the chest, abdomen, and pelvis after IV contrast. All CT scans at this location are performed using CT dose reduction for ALARA by means of automated exposure contr ol. COMPARISON: Prior CT abdomen and pelvis with contrast dated 07/28/2020 FINDINGS: HEART: No significant abnormality. THORACIC AORTA: No significant abnormality. MEDIASTINUM and ODALIS: Multiple shotty lymph nodes are noted, none of which are enlarged according to CT size criteria. The largest measures 9 mm short axis (series 2 image 45). LUNGS: No acute air space or interstitial disease. PLEURA: No significant pleural effusion. No pneumothorax. ADDITIONAL CHEST FINDINGS: None. LIVER: Small hypoattenuating lesions left hepatic lobe unchanged since prior exam. GALLBLADDER: Cholelithiasis, unchanged from prior exam. No acute cholecystitis BILE DUCTS: No significant abnormality. PANCREAS: No significant abnormality. SPLEEN: No significant abnormality. ADRENALS: No significant abnormality. RIGHT KIDNEY / URETER: No significant abnormality. LEFT KIDNEY / URETER: No significant abnormality. STOMACH and SMALL BOWEL: No significant abnormality. COLON: No significant change in size or character of the previously noted concentric colonic wall mas s at the sigmoid (series 3 image 108-112). APPENDIX: No significant abnormality. PERITONEUM: No free fluid. No free air. No fluid collection. LYMPH NODES: Interval enlargement of previously noted retrocrural node now measures 1.1 x 1.0 cm (pre viously 6 mm). Enlarged left periaortic lymph node now measures 1.8 x 1.3 cm, relatively stable since prior exam. AORTA and ARTERIES: No significant abnormality. IVC and VEINS: No significant abnormality. URINARY BLADDER: No significant abnormality. REPRODUCTIVE ORGANS: No significant abnormality. ADDITIONAL FINDINGS: None. SKELETAL SYSTEM: Multilevel degenerative changes are noted of the spine. No aggressive osseous lesion s. IMPRESSION: 1. No significant change in size or character of the patient's known sigmoid colonic mass. 2. Interval enlargement of retrocrural lymph nodes now measuring 1.1 x 1.0 cm. Previously noted peria ortic lymphadenopathy is stable. 3. Additional findings are unchanged from the prior exam. Signer Name: Edgar Pastor MD Signed: 10/04/2020 2:15 PM Workstation Name: [id number]
== END 2020-10-04 11:02 | disposition home or self-care (01) ==
LOC: CT 11:01
PROVIDERS: ATTEND Internal Medicine Hematology & Oncology
DX: C18.9 Malignant neoplasm of colon, unspecified (principal); I89.9 Noninfective disorder of lymphatic vessels and lymph nodes, unspecified; K80.20 Calculus of gallbladder without cholecystitis without obstruction; R59.0 Localized enlarged lymph nodes; M47.814 Spondylosis without myelopathy or radiculopathy, thoracic region
CPT/HCPCS: 36415; 71260; 74177; 82565; 84520; Q9967

== ENCOUNTER 2020-12-15 16:08 | Emergency (ER) | payer OTHER ==
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
[2020-12-15 19:03] LABS: Basophils % (Auto) 0.2 % (0.0-1.8); Eosinophils # (Auto) 0.2 K/mm3 (0.0-0.4); Eosinophils % (Auto) 2.4 % (0.0-4.3); Hematocrit 41.4 % (35.5-45.6); Hemoglobin 14.3 gm/dl (11.8-15.2); Lymphocytes # (Auto) 1.9 K/mm3 (1.2-5.4); Lymphocytes % (Auto) 29.6 % (13.4-35.0); Mean Corpuscular HGB Conc 35 % (32-34); Mean Corpuscular Volume 97 fl (84-94); Monocytes # (Auto) 0.7 K/mm3 (0.0-0.8); Platelet Count 249 K/mm3 (140-440); Red Blood Count 4.27 M/mm3 (3.65-5.03); Red Cell Distribution Width 13.4 % (13.2-15.2)
--- NOTE | 2020-12-15 19:09 | XRay Report ---
ABDOMEN 3 VIEW(S) INDICATION / CLINICAL INFORMATION: constipation. COMPARISON: CT abdomen and pelvis 10/04/2020. FINDINGS: TUBES / LINES: None. BOWEL GAS PATTERN: Gas-filled and distended gastric lumen. Abundant fecal material noted throughout t he colon and rectal vault. Nonobstructive bowel gas pattern. FREE AIR / EXTRALUMINAL GAS: None seen. ADDITIONAL FINDINGS: Postsurgical changes are noted of the pelvis. CHEST: Visualized chest shows no significant abnormality. IMPRESSION: 1. Findings consistent with provided clinical history of constipation. Signer Name: Edgar Pastor MD Signed: 12/15/2020 7:05 PM Workstation Name: [id number]
[2020-12-15 19:24] LABS: Alanine Aminotransferase 28 units/L (7-56); Albumin 3.5 g/dL (3.9-5); BUN/Creatinine Ratio 14; Blood Urea Nitrogen 15 mg/dL (9-20); Calcium 8.5 mg/dL (8.4-10.2); Hemolysis Index 8
--- NOTE | 2020-12-15 20:59 | Emergency Department Report ---
ED Abdominal Pain HPI - General Chief Complaint: Abdominal Pain Stated Complaint: HAD AN OPERATION AND SOMETHING IS NOT RIGHT PUI?: No Time Seen by Provider: 12/15/20 20:52 Source: patient Mode of arrival: Ambulatory Limitations: No Limitations - History of Present Illness Initial Comments: Patient is a 55-year-old male who presents emergency room with complaints of abdominal pain and constipation. Patient states on December 10 he had a colon resection for colon cancer and he has been having constipation ever since. Patient states approximately 4 days ago he started having abdominal pain. Patient dates his symptoms worsen. Patient states he has not had a bowel movement in multiple days. Patient states that his pain is better with rest and worse with movement and palpation. Patient denies nausea and vomiting. Patient denies recent travel. Patient denies recent international travel. Patient denies exposure to the novel coronavirus. Patient denies sick contacts. Patient denies fever and chills. Patient denies cough. Patient denies diarrhea. Patient denies coming in contact with anybody with symptoms of the novel coronavirus. MD Complaint: abdominal pain -: Sudden Location: diffuse Radiation: none Migration to: no migration Severity: severe Severity scale (0 -10): 10 Quality: stabbing Consistency: constant Improves With: rest Worsens With: movement Associated Symptoms: constipation. denies: nausea, vomiting, diarrhea, fever, chills, dysuria, hematemesis, hematochezia, melena, hematuria, syncope - Related Data Previous Rx's Medication Instructions Recorded Last Taken Type TEGretol 100 mg PO QDAY #30 12/19/19 Unknown Rx oxyCODONE /ACETAMINOPHEN [Percocet 1 tab PO Q6H PRN #10 tablet 12/19/19 Unknown Rx 5/325 mg] traZODone [Desyrel] 100 mg PO QHS #30 12/19/19 Unknown Rx Docusate Sodium [Docusil] 100 mg PO BID PRN #30 capsule 07/28/20 Unknown Rx Famotidine [Pepcid] 20 mg PO BID #60 tablet 07/28/20 Unknown Rx HYDROcodone/APAP 5-325 [[place] 1 each PO Q6HR PRN #10 tablet 07/28/20 Unknown Rx 5-325 mg TAB] amLODIPine 10 mg PO DAILY 30 Days #30 tab 07/28/20 Unknown Rx atenoloL [Tenormin] 25 mg PO DAILY 30 Days #30 tab 07/28/20 Unknown Rx Magnesium Citrate [Citrate of 296 ml PO DAILY #1 solution 12/15/20 Unknown Rx Magnesia] Sennosides/Docusate Sodium [Senna 1 each PO BID PRN #30 tablet 12/15/20 Unknown Rx Plus Tablet] Allergies Allergy/AdvReac Type Severity Reaction Status Date / Time SHAWN Inhibitors Allergy Unknown Verified 04/04/18 15:58 ED Review of Systems ROS: Stated complaint: HAD AN OPERATION AND SOMETHING IS NOT RIGHT Other details as noted in HPI Constitutional: denies: chills, fever Eyes: denies: eye pain, eye discharge, vision change ENT: denies: ear pain, throat pain Respiratory: denies: cough, shortness of breath, wheezing Cardiovascular: denies: chest pain, palpitations Endocrine: no symptoms reported Gastrointestinal: abdominal pain, constipation. denies: nausea, diarrhea Genitourinary: denies: urgency, dysuria Musculoskeletal: denies: back pain, joint swelling, arthralgia Skin: denies: rash, lesions Neurological: denies: headache, weakness, paresthesias Psychiatric: denies: anxiety, depression Hematological/Lymphatic: denies: easy bleeding, easy bruising ED Past Medical Hx - Past Medical History Previous Medical History?: Yes Hx Hypertension: Yes Hx Heart Attack/AMI: No Hx Liver Disease: No Hx Renal Disease: No Hx of Cancer: Yes (colon) Hx Psychiatric Treatment: Yes (Drug use with crack cocaine) Additional medical history: bulging disc. Colon Cancer diagnosed 12/2019 - Surgical History Past Surgical History?: Yes Additional Surgical History: TURP 2018 - Family History Family history: no significant - Social History Smoking Status: Current Every Day Smoker Substance Use Type: Alcohol - Medications Home Medications: Home Medications Medication Instructions Recorded Confirmed Last Taken Type TEGretol 100 mg PO QDAY #30 12/19/19 Unknown Rx oxyCODONE /ACETAMINOPHEN [Percocet 1 tab PO Q6H PRN #10 tablet 12/19/19 Unknown Rx 5/325 mg] traZODone [Desyrel] 100 mg PO QHS #30 12/19/19 Unknown Rx Docusate Sodium [Docusil] 100 mg PO BID PRN #30 capsule 07/28/20 Unknown Rx Famotidine [Pepcid] 20 mg PO BID #60 tablet 07/28/20 Unknown Rx HYDROcodone/APAP 5-325 [[place] 1 each PO Q6HR PRN #10 tablet 07/28/20 Unknown Rx 5-325 mg TAB] amLODIPine 10 mg PO DAILY 30 Days #30 tab 07/28/20 Unknown Rx atenoloL [Tenormin] 25 mg PO DAILY 30 Days #30 tab 07/28/20 Unknown Rx Magnesium Citrate [Citrate of 296 ml PO DAILY #1 solution 12/15/20 Unknown Rx Magnesia] Sennosides/Docusate Sodium [Senna 1 each PO BID PRN #30 tablet 12/15/20 Unknown Rx Plus Tablet] ED Physical Exam - General Limitations: No Limitations General appearance: alert, in no apparent distress - Head Head exam: Present: atraumatic, normocephalic - Eye Eye exam: Present: normal appearance - ENT ENT exam: Present: mucous membranes moist - Neck Neck exam: Present: normal inspection - Respiratory Respiratory exam: Present: normal lung sounds bilaterally. Absent: respiratory distress - Cardiovascular Cardiovascular Exam: Present: regular rate, normal rhythm. Absent: systolic murmur, diastolic murmur, rubs, gallop - GI/Abdominal GI/Abdominal exam: Present: soft, tenderness (Lower abdominal tenderness. ), normal bowel sounds, other (lower abd midline surgical site, healing well. no infection. ) - Rectal Rectal exam: Present: deferred - Extremities Exam Extremities exam: Present: normal inspection - Back Exam Back exam: Present: normal inspection - Neurological Exam Neurological exam: Present: alert, oriented X3 - Psychiatric Psychiatric exam: Present: normal affect, normal mood - Skin Skin exam: Present: warm, dry, intact, normal color. Absent: rash ED Course Vital Signs 12/15/20 12/15/20 16:44 21:58 Temperature 98.0 F Pulse Rate 75 73 Respiratory 20 16 Rate Blood Pressure 138/91 Blood Pressure 145/80 [Left] O2 Sat by Pulse 99 99 Oximetry - Reevaluation(s) Reevaluation #1: I discussed all results and clinical findings with patient. I discussed plan of care with patient. Patient agrees with plan of care. Patient is stable for discharge. Patient will be discharged home. Patient given discharge instructions. Patient voiced understanding of discharge instructions. 12/15/20 23:48 ED Medical Decision Making - Lab Data Result diagrams: 12/15/20 18:46 12/15/20 18:46 - Radiology Data Radiology results: report reviewed CT abdomen pelvis w con INDICATION / CLINICAL INFORMATION: abd pain. TECHNIQUE: Axial CT imaging of abdomen and pelvis was obtained with IV contrast. Coronal and sagittal reformatted imaging obtained and reviewed. All CT scans at this location are performed using CT dose reduction for ALARA by means of automated exposure control. COMPARISON: Prior CT abdomen/pelvis 10/04/2020 FINDINGS: CT abdomen with contrast demonstrates normal appearance of the liver, spleen, pancreas, kidneys, and adrenal glands. Gallstones are present within the gallbladder. The gallbladder is not abnormally distended or obviously inflamed, however. CT pelvis with contrast demonstrates mild enlargement of the prostate gland. No pelvic mass, free fluid, or focal inflammatory changes noted. The appendix is normal in appearance. There are several fluid-filled loops of small bowel noted throughout the abdomen and pelvis without significant dilatation. The appearance of the bowel is suggestive of enteritis if clinical symptoms and presentation supports that diagnosis. Visualized lung bases are clear. No significant acute osseous abnormality. IMPRESSION: 1. The appearance of the small bowel is very suggestive for enteritis. Please correlate clinically with symptoms and clinical presentation. 2. Cholelithiasis without CT evidence for acute cholecystitis. 3 prostate gland is mildly enlarged. - Medical Decision Making Patient is a 55-year-old male who presents emergency room with complaints of abdominal pain and constipation. Patient had a recent colon resection for colon cancer. Patient states had a bowel movement since. Patient had a x-ray of his abdomen shows constipation and stool burden. Patient then had a CT scan of the abdomen which was negative for acute findings except for enteritis. Patient did not complain of any nausea. Patient had labs done which were essentially unremarkable. Patient stable for discharge. Patient discharged home with senna S and mag citrate. Critical care attestation.: If time is entered above; I have spent that time in minutes in the direct care of this critically ill patient, excluding procedure time. ED Disposition Clinical Impression: Enteritis Abdominal pain Qualifiers: Abdominal location: lower abdomen, unspecified Qualified Code(s): R10.30 - Lower abdominal pain, unspecified Constipation Qualifiers: Constipation type: other constipation type Qualified Code(s): K59.09 - Other constipation Disposition: TO HOME OR SELFCARE Is pt being admited?: No Does the pt Need Aspirin: No Condition: Stable Instructions: Constipation, Adult, [id number], Constipation, Adult, High- Fiber Diet Additional Instructions: Patient to follow-up with primary care in 2 to 3 days. Patient to follow-up with general surgeon in 2 to 3 days. Patient to rest. Patient to increase water. . Patient to take Tylenol or ibuprofen as needed for pain. Patient to take meds as directed. Patient to return to the ER if condition worsens, c hanges or new symptoms arise. Prescriptions: Magnesium Citrate [Citrate of Magnesia] 296 ml PO DAILY #1 solution Sennosides/Docusate Sodium [Senna Plus Tablet] 1 each PO BID PRN #30 tablet PRN Reason: Constipation Referrals: ANALY NATHAN DO [Primary Care Provider] - 2-3 Days Time of Disposition: 23:48
[2020-12-15 21:59] VITALS: BP 145/80
[2020-12-15 22:09] LABS: Bilirubin,Urine NEG (Negative); Blood,Urine NEG (Negative); Color,Urine Yellow (Yellow); Mucus,Urine FEW /HPF; Protein,Urine <15 mg/dL mg/dL (Negative); RBC,Urine < 1.0 /HPF (0.0-6.0); Urobilinogen,Urine < 2.0 mg/dL (<2.0); WBC,Urine < 1.0 /HPF (0.0-6.0)
[2020-12-15] MEDS ORDERED: SODIUM CHLORIDE 0.9% 1000 ML 1,000 ML IV ONE (22:09)
[2020-12-15] MEDS ORDERED: ONDANSETRON 4 MG/2 ML INJ IV ONE (22:09)
[2020-12-15] MEDS ORDERED: HYDROmorphone 1 MG/1 ML INJ IV ONE (22:09)
--- NOTE | 2020-12-15 23:09 | Cat Scan Report ---
CT abdomen pelvis w con INDICATION / CLINICAL INFORMATION: abd pain. TECHNIQUE: Axial CT imaging of abdomen and pelvis was obtained with IV contrast. Coronal and sagittal reformatte d imaging obtained and reviewed. All CT scans at this location are performed using CT dose reduction for ALARA by means of automated exposure control. COMPARISON: Prior CT abdomen/pelvis 10/04/2020 FINDINGS: CT abdomen with contrast demonstrates normal appearance of the liver, spleen, pancreas, kidneys, and adrenal glands. Gallstones are present within the gallbladder. The gallbladder is not abnormally dist ended or obviously inflamed, however. CT pelvis with contrast demonstrates mild enlargement of the prostate gland. No pelvic mass, free flu id, or focal inflammatory changes noted. The appendix is normal in appearance. There are several fluid-filled loops of small bowel noted throughout the abdomen and pelvis without s ignificant dilatation. The appearance of the bowel is suggestive of enteritis if clinical symptoms an d presentation supports that diagnosis. Visualized lung bases are clear. No significant acute osseous abnormality. IMPRESSION: 1. The appearance of the small bowel is very suggestive for enteritis. Please correlate clinically wi th symptoms and clinical presentation. 2. Cholelithiasis without CT evidence for acute cholecystitis. 3 prostate gland is mildly enlarged. Signer Name: Ngoc Purvis MD Signed: 12/15/2020 11:04 PM Workstation Name: [id number]
== END 2020-12-16 00:02 | disposition home or self-care (01) ==
LOC: ED 16:08
DX: K59.00 Constipation, unspecified (principal); K52.9 Noninfective gastroenteritis and colitis, unspecified; R10.84 Generalized abdominal pain; I10 Essential (primary) hypertension; F17.200 Nicotine dependence, unspecified, uncomplicated; Z98.890 Other specified postprocedural states; Z79.899 Other long term (current) drug therapy; Z88.8 Allergy status to other drugs, medicaments and biological substances
CPT/HCPCS: 36415; 74019; 74177; 80053; 81001; 83690; 85025; 96361; 96374; 96375; 99284; J1170; J2405; J7030; Q9967

== ENCOUNTER 2021-02-21 14:26 | Outpatient (CLI) | payer OTHER ==
--- NOTE | 2021-02-21 15:32 | XRay Report ---
ABDOMEN 1 VIEW INDICATION / CLINICAL INFORMATION: PAIN IN LEFT GROIN/LOWER ABDOMEN. COMPARISON: Radiographs 12/15/2020 FINDINGS: TUBES / LINES: None. BOWEL GAS PATTERN: No significant abnormality. FREE AIR / EXTRALUMINAL GAS: None seen. ADDITIONAL FINDINGS: Degenerative changes lumbar spine with pseudoarthrosis on the left at L5-S1. IMPRESSION: 1. No significant abnormality. Signer Name: Mukund Donnelly MD Signed: 02/21/2021 3:27 PM Workstation Name: [id number]
== END 2021-02-21 14:27 | disposition home or self-care (01) ==
LOC: XRAY 14:26
PROVIDERS: ATTEND Internal Medicine Hematology & Oncology
DX: R10.30 Lower abdominal pain, unspecified (principal); M47.816 Spondylosis without myelopathy or radiculopathy, lumbar region; H35.52 Pigmentary retinal dystrophy
CPT/HCPCS: 74018

== ENCOUNTER 2021-04-12 10:28 | Emergency (ER) | payer OTHER ==
[2021-04-12] MEDS ORDERED: ONDANSETRON 4 MG/2 ML INJ IV ONE (11:26)
[2021-04-12] MEDS ORDERED: MORPHINE 4 MG/1 ML INJ IV ONE (11:26)
--- NOTE | 2021-04-12 11:53 | Emergency Department Report ---
ED Abdominal Pain HPI - General Chief Complaint: Abdominal Pain Stated Complaint: PAIN IN STOMACHE AREA DUE TO CHEMO PUI?: No Time Seen by Provider: 04/12/21 11:10 Source: patient Mode of arrival: Ambulatory Limitations: No Limitations - History of Present Illness Initial Comments: Chief complaint: Burning abdominal pain HPI: This is a 56-year-old male with a history of stage IV colon cancer on chemotherapy, hypertension who presents with burning epigastric pain for 1 day. Patient reinitiated chemotherapy after 3-week pause. He required multiple outpatient imaging including MRI. He underwent chemotherapy infusion on Wednesday without event. He developed diarrhea. He now has epigastric burning pain for the past day. He denies vomiting denies diarrhea. Oncologist Dr. Nathan He normally takes Percocet for pain as needed. He has been out of his medication. His next oncology appointment is on Wednesday. MD Complaint: abdominal pain -: Gradual, days(s) (1 day) Location: epigastric Radiation: none, epigastric Migration to: no migration Severity: moderate Severity scale (0 -10): 0 Quality: burning Consistency: intermittent Improves With: nothing Worsens With: nothing Associated Symptoms: diarrhea - Related Data Previous Rx's Medication Instructions Recorded Last Taken Type TEGretol 100 mg PO QDAY #30 12/19/19 Unknown Rx oxyCODONE /ACETAMINOPHEN [Percocet 1 tab PO Q6H PRN #10 tablet 12/19/19 Unknown Rx 5/325 mg] traZODone [Desyrel] 100 mg PO QHS #30 12/19/19 Unknown Rx Docusate Sodium [Docusil] 100 mg PO BID PRN #30 capsule 07/28/20 Unknown Rx Famotidine [Pepcid] 20 mg PO BID #60 tablet 07/28/20 Unknown Rx HYDROcodone/APAP 5-325 [[place] 1 each PO Q6HR PRN #10 tablet 07/28/20 Unknown Rx 5-325 mg TAB] amLODIPine 10 mg PO DAILY 30 Days #30 tab 07/28/20 Unknown Rx atenoloL [Tenormin] 25 mg PO DAILY 30 Days #30 tab 07/28/20 Unknown Rx Magnesium Citrate [Citrate of 296 ml PO DAILY #1 solution 12/15/20 Unknown Rx Magnesia] Sennosides/Docusate Sodium [Senna 1 each PO BID PRN #30 tablet 12/15/20 Unknown Rx Plus Tablet] oxyCODONE /ACETAMINOPHEN [Percocet 1 tab PO Q6HR PRN #15 tablet 04/12/21 Unknown Rx 5/325] Allergies Allergy/AdvReac Type Severity Reaction Status Date / Time SHAWN Inhibitors Allergy Unknown Verified 04/04/18 15:58 ED Review of Systems ROS: Stated complaint: PAIN IN STOMACHE AREA DUE TO CHEMO Other details as noted in HPI Comment: All other systems reviewed and negative Constitutional: denies: fever, malaise Respiratory: denies: cough, shortness of breath Gastrointestinal: abdominal pain, diarrhea. denies: nausea, vomiting ED Past Medical Hx - Past Medical History Previous Medical History?: Yes Hx Hypertension: Yes Hx Heart Attack/AMI: No Hx Liver Disease: No Hx Renal Disease: No Hx Psychiatric Treatment: Yes (Cocaine abuse) Additional medical history: bulging disc. Colon Cancer diagnosed 12/2019 - Surgical History Past Surgical History?: Yes Additional Surgical History: TURP 2017 - Social History Smoking Status: Never Smoker Substance Use Type: Alcohol, Cocaine - Medications Home Medications: Home Medications Medication Instructions Recorded Confirmed Last Taken Type TEGretol 100 mg PO QDAY #30 12/19/19 Unknown Rx oxyCODONE /ACETAMINOPHEN [Percocet 1 tab PO Q6H PRN #10 tablet 12/19/19 Unknown Rx 5/325 mg] traZODone [Desyrel] 100 mg PO QHS #30 12/19/19 Unknown Rx Docusate Sodium [Docusil] 100 mg PO BID PRN #30 capsule 07/28/20 Unknown Rx Famotidine [Pepcid] 20 mg PO BID #60 tablet 07/28/20 Unknown Rx HYDROcodone/APAP 5-325 [[place] 1 each PO Q6HR PRN #10 tablet 07/28/20 Unknown Rx 5-325 mg TAB] amLODIPine 10 mg PO DAILY 30 Days #30 tab 07/28/20 Unknown Rx atenoloL [Tenormin] 25 mg PO DAILY 30 Days #30 tab 07/28/20 Unknown Rx Magnesium Citrate [Citrate of 296 ml PO DAILY #1 solution 12/15/20 Unknown Rx Magnesia] Sennosides/Docusate Sodium [Senna 1 each PO BID PRN #30 tablet 12/15/20 Unknown Rx Plus Tablet] oxyCODONE /ACETAMINOPHEN [Percocet 1 tab PO Q6HR PRN #15 tablet 04/12/21 Unknown Rx 5/325] ED Physical Exam - General Limitations: No Limitations General appearance: alert, in no apparent distress, other (Appears comfortable, moves without difficulty, changes position without hesitation) - Head Head exam: Present: atraumatic, normocephalic - Eye Eye exam: Present: normal appearance - ENT ENT exam: Present: mucous membranes moist - Neck Neck exam: Present: normal inspection - Respiratory Respiratory exam: Present: normal lung sounds bilaterally. Absent: respiratory distress, wheezes, rales, rhonchi - Cardiovascular Cardiovascular Exam: Present: regular rate, normal rhythm, normal heart sounds. Absent: systolic murmur, diastolic murmur, rubs, gallop - GI/Abdominal GI/Abdominal exam: Present: soft, normal bowel sounds. Absent: distended, te nderness, guarding, rebound - Rectal Rectal exam: Present: deferred - Extremities Exam Extremities exam: Present: normal inspection - Neurological Exam Neurological exam: Present: alert, oriented X3 - Psychiatric Psychiatric exam: Present: normal affect, normal mood - Skin Skin exam: Present: warm, dry, intact, normal color. Absent: rash ED Course Vital Signs 04/12/21 04/12/21 04/12/21 10:40 11:42 11:46 Temperature 98.8 F 98.3 F 98.3 F Pulse Rate 59 L 79 79 Respiratory 16 12 12 Rate Blood Pressure 121/73 Blood Pressure 146/90 121/73 [Left] O2 Sat by Pulse 100 99 99 Oximetry 04/12/21 13:47 Temperature 98.3 F Pulse Rate 73 Respiratory 14 Rate Blood Pressure Blood Pressure 131/75 [Left] O2 Sat by Pulse 99 Oximetry ED Medical Decision Making - Lab Data Result diagrams: 04/12/21 11:43 04/12/21 11:43 - Radiology Data Radiology results: report reviewed Patient Name: TANYA SALGUERO Gender: Male Date of : 1965 Referring Provider: YONATHAN ZIMMERMAN Organization: [facility] Accession Number: [id number] Requested Date: April 12, 2021 11:25 Report Status: Final Requested Procedure: 1 Procedure Description: CT abdomen pelvis w con Modality: CT Findings Reporting MD: Sam Pinkation Time: April 12, 2021 12:54 Mellowing Machine Operator: Not available Asphalt Machine Operator Date: CT ABDOMEN AND PELVIS WITH CONTRAST INDICATION / CLINICAL INFORMATION: Severe epigastric pain stage IV colon cancer. TECHNIQUE: Axial CT images were obtained through the abdomen and pelvis after 100 cc of Omnipaque [address] scans at this location are performed using CT dose reduction for ALARA by means of automated exposure control. COMPARISON: 12/15/2020 FINDINGS: LOWER CHEST: No significant abnormality. AORTA / ARTERIES: Mild atherosclerotic calcification without acute abnormality. IVC / VEINS: No significant abnormality. LYMPH NODES: No significant adenopathy. COLON: Postsurgical change to the distal colon. APPENDIX: No significant abnormality. STOMACH / SMALL BOWEL: No significant abnormality. PERITONEUM: No free fluid. No free air. No fluid collection. LIVER: No significant abnormality. GALLBLADDER: Cholelithiasis BILE DUCTS: No significant abnormality. PANCREAS: No significant abnormality. SPLEEN: No significant abnormality. ADRENALS: No significant abnormality. RIGHT KIDNEY / URETER: No significant abnormality. LEFT KIDNEY / URETER: No significant abnormality. URINARY BLADDER: No significant abnormality. REPRODUCTIVE ORGANS: Prostate is enlarged. SKELETAL SYSTEM: Scattered degeneration [facility] [address] [place] [address] P [phone] F [phone] [facility] - Report exported on SatApr 12, 2021 13:24:11 -0500 - Page 2 of 2 ADDITIONAL FINDINGS: None. IMPRESSION: 1. No acute intra-abdominal or intrapelvic pathology. 2. Other findings as above. - Medical Decision Making Mr. Salguero is a 56-year-old male who presents with cancer associated pain. Patient has a history of stage IV cancer. He has run out of Percocet. Acute inflammatory obstructive process ruled out with CT scan of the abdomen pelvis. I have prescribed 15 tablets of Percocet. Patient has follow-up with Dr. Nathan on Wednesday. CBC chemistry lipase all within normal limits - Differential Diagnosis Peptic ulcer disease, gastritis, pancreatitis, IBS Critical care attestation.: If time is entered above; I have spent that time in minutes in the direct care of this critically ill patient, excluding procedure time. ED Disposition Clinical Impression: Metastatic cancer, Colon cancer, Cancer associated pain Disposition: HOME / SELF CARE / HOMELESS Is pt being admited?: No Does the pt Need Aspirin: No Condition: Stable Prescriptions: oxyCODONE /ACETAMINOPHEN [Percocet 5/325] 1 tab PO Q6HR PRN #15 tablet PRN Reason: Pain Referrals: ANALY NATHAN DO [Staff Physician] - 3-5 Days
[2021-04-12 12:00] LABS: Basophils % (Auto) 0.2 % (0.0-1.8); Eosinophils # (Auto) 0.1 K/mm3 (0.0-0.4); Eosinophils % (Auto) 1.7 % (0.0-4.3); Hematocrit 37.8 % (35.5-45.6); Hemoglobin 13.3 gm/dl (11.8-15.2); Lymphocytes # (Auto) 1.1 K/mm3 (1.2-5.4); Mean Corpuscular HGB Conc 35 % (32-34); Mean Corpuscular Volume 95 fl (84-94); Monocytes # (Auto) 0.2 K/mm3 (0.0-0.8); Monocytes % (Auto) 4.3 % (0.0-7.3); Platelet Count 127 K/mm3 (140-440); Red Blood Count 3.97 M/mm3 (3.65-5.03); Red Cell Distribution Width 16.5 % (13.2-15.2)
[2021-04-12 12:16] LABS: Alanine Aminotransferase 16 units/L (7-56); BUN/Creatinine Ratio 18; Blood Urea Nitrogen 16 mg/dL (9-20); Calcium 8.9 mg/dL (8.4-10.2); Hemolysis Index 6
[2021-04-12 13:48] VITALS: BP 131/75
--- NOTE | 2021-04-12 13:59 | Cat Scan Report ---
CT ABDOMEN AND PELVIS WITH CONTRAST INDICATION / CLINICAL INFORMATION: Severe epigastric pain stage IV colon cancer. TECHNIQUE: Axial CT images were obtained through the abdomen and pelvis after 100 cc of Omnipaque [address] scans at this location are performed using CT dose reduction for ALARA by means of automated exposure control. COMPARISON: 12/15/2020 FINDINGS: LOWER CHEST: No significant abnormality. AORTA / ARTERIES: Mild atherosclerotic calcification without acute abnormality. IVC / VEINS: No significant abnormality. LYMPH NODES: No significant adenopathy. COLON: Postsurgical change to the distal colon. APPENDIX: No significant abnormality. STOMACH / SMALL BOWEL: No significant abnormality. PERITONEUM: No free fluid. No free air. No fluid collection. LIVER: No significant abnormality. GALLBLADDER: Cholelithiasis BILE DUCTS: No significant abnormality. PANCREAS: No significant abnormality. SPLEEN: No significant abnormality. ADRENALS: No significant abnormality. RIGHT KIDNEY / URETER: No significant abnormality. LEFT KIDNEY / URETER: No significant abnormality. URINARY BLADDER: No significant abnormality. REPRODUCTIVE ORGANS: Prostate is enlarged. SKELETAL SYSTEM: Scattered degeneration ADDITIONAL FINDINGS: None. IMPRESSION: 1. No acute intra-abdominal or intrapelvic pathology. 2. Other findings as above. Signer Name: Sam Pink DO Signed: 04/12/2021 1:54 PM Workstation Name: [id number]
== END 2021-04-12 14:37 | disposition home or self-care (01) ==
LOC: ED 10:28
DX: C18.9 Malignant neoplasm of colon, unspecified (principal); C79.9 Secondary malignant neoplasm of unspecified site; G89.3 Neoplasm related pain (acute) (chronic); I10 Essential (primary) hypertension; F12.90 Cannabis use, unspecified, uncomplicated; F10.20 Alcohol dependence, uncomplicated
CPT/HCPCS: 36415; 74177; 80053; 83690; 85025; 96374; 96375; 99284; J2270; J2405; Q9967

== ENCOUNTER 2021-10-09 12:53 | Outpatient (CLI) | payer OTHER ==
--- NOTE | 2021-10-09 14:27 | XRay Report ---
Lumbar spine 3 views INDICATION: Back pain FINDINGS: Minimal anterolisthesis of L4-L5. Facet change L4-5 and L5-S1. No compression fracture. Sac rum appears normal. Signer Name: Juanito Branch MD Signed: 10/09/2021 2:23 PM Workstation Name: [id number]
== END 2021-10-09 12:54 | disposition home or self-care (01) ==
LOC: XRAY 12:53
PROVIDERS: ATTEND Internal Medicine
DX: M43.16 Spondylolisthesis, lumbar region (principal)
CPT/HCPCS: 72100